=== PATIENT | female | born 1940 | race Caucasian/White ===

== ENCOUNTER 2017-03-28 18:56 | Emergency (ER) | payer BC ==
[2017-03-28 18:59] VITALS: BP 167/83; PULSE 92; RESP 16; TEMP 97.8; O2SAT 95
--- NOTE | 2017-03-28 19:58 | RADRPT ---
EXAM DATE/TIME: 03/28/2017 19:25 [place] COMPARISON: No previous studies available for comparison. INDICATIONS : Right tibia pain and laceration from blunt force trauma to leg. MEDICAL HISTORY : None. SURGICAL HISTORY : None. ENCOUNTER: Initial ACUITY: 1 day PAIN SCORE: 9/10 LOCATION: Right middle tibia. FINDINGS: There is a soft tissue laceration along the anterior aspect of the leg. The tibia and fibula are inta ct. No retained foreign body is seen. CONCLUSION: 1. Soft tissue laceration. 2. No acute bony fracture identified. 3. No retained foreign body identified. Linus Ryan MD on March 28, 2017 at 19:55 Board Certified Radiologist. This report was verified electronically.
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
[2017-03-28] MEDS ORDERED: TETANUS/DIPHTHERIA TOXOID ADULT 0.5 ML VIAL IM ONE (21:00)
== END 2017-03-28 21:12 | disposition home or self-care (01) ==
LOC: NEPK 18:56
DX: S81.811A Laceration without foreign body, right lower leg, initial encounter (principal); I48.91 Unspecified atrial fibrillation; E11.9 Type 2 diabetes mellitus without complications; W26.9XXA Contact with unspecified sharp object(s), initial encounter; Z23 Encounter for immunization; Z79.01 Long term (current) use of anticoagulants; Z88.1 Allergy status to other antibiotic agents; Z88.0 Allergy status to penicillin
CPT/HCPCS: 12002; 73590; 90471; 90714